=== PATIENT | female | born 1975 | race Caucasian/White ===

== ENCOUNTER → 2024-07-21 12:31 | Outpatient (REF) | payer BC, SELFPAY | LOC: REG 12:31 | PROVIDERS: ATTENDING PHYSICIAN Chiropractor; FAMILY PHYSICIAN Physician Assistant Medical | DX: T78.40XA Allergy, unspecified, initial encounter (principal) | CPT/HCPCS: 36415 ==

== ENCOUNTER 2024-08-13 09:02 | Emergency (ER) | payer BC, SELFPAY ==
[2024-08-13 09:05] VITALS: BP 148/85
[2024-08-13 09:45] LABS: % Basophils 0.2 % (0-2); % Eosinophils 0.1 % (0-6); % Lymphocytes 14.2 % (20.5-51.1); % Monocytes 5.7 % (1.7-9.3); % Neutrophils 78.8 % (42.2-75.2); Absolute Immature Granulocytes 0.2 10^3/uL (0-0.05); Absolute Lymphocytes 2.2 10^3/uL (1.2-3.4); Absolute Monocytes 0.9 10^3/uL (0.1-0.6); Absolute Neutrophils 11.9 10^3/uL (1.4-6.5); Hematocrit 39.9 % (37.0-47.0); Hemoglobin 13.8 g/dL (12.0-16.0); Mean Corp Hgb Conc. 34.6 g/dL (33.0-37.0); Mean Corpuscular Hgb 29.7 pg (27.0-31.0); Mean Corpuscular Volume 85.8 fL (81.0-99.0); Mean Platelet Volume 10.2 fL (7.4-10.4); Nucleated Red Blood Cells % 0 %; Platelet Count 284 10^3/uL (130-400); Red Blood Cell Count 4.65 10^6/uL (4.20-5.40); White Blood Cell Count 15.2 10^3/uL (4.8-10.8)
[2024-08-13 10:02] LABS: HCG, Serum Qualitative Screen Negative
[2024-08-13 10:10] LABS: ALT (SGPT) 24 U/L (0-35); AST (SGOT) 21 U/L (14-36); Albumin 4.9 g/dl (3.5-5.0); Alkaline Phosphatase 57 U/L (38-126); Blood Urea Nitrogen 19 mg/dl (7-17); Calcium 9.7 mg/dl (8.4-10.2); Carbon Dioxide 22 mmol/L (22-30); Chloride 105 mmol/L (98-107); Glucose 107 mg/dl (70-99); Potassium 3.9 mmol/L (3.5-5.1); Sodium 138 mmol/L (135-145); Total Bilirubin 0.7 mg/dl (0.2-1.3); Total Protein 7.5 g/dl (6.3-8.2); eGFR > 60.00
[2024-08-13 10:18] LABS: Troponin I < 0.012 ng/ml
--- NOTE | 2024-08-13 11:26 | ED.GENMED ---
History of Present Illness
General
Chief Complaint: Fainting/Passed Out
Source: patient
Exam Limitations: none
Time Seen by Provider: 08/13/24 10:57
History of Present Illness
History of Present Illness:
49-year-old female stood up too fast and got lightheaded and fell last evening after dinner. She hit her head on the floor and suffered a laceration. There is no preceding chest pain. No palpitations. This happened to her in the past. She has
known orthostatic hypotension. No other complaints at this time
Past History
Past History
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
ED Past Surgical History: Tonsilectomy and Other (History of fasciotomy, breast lifts)
Social History
Tobacco: Non-smoker
Alcohol: Occasional
Personal:
Living: with family
Family History
Family History: Sudden (Uncle at age 40, his son at 31.)
Phy Exam
Physical Exam
Physical Exam:
General: Well-appearing female no acute respiratory distress
HEENT: Normocephalic pupils equal round reactive to light 2 cm horizontally oriented laceration lateral aspect left forehead no muscle involvement
Neurologic exam: Alert and oriented no facial asymmetry conversing appropriately normal gait
Musculoskeletal exam: Cervical spine is nontender
Course
Orders/Labs/Results
Orders:
Orders
08/13/24 09:07
ECG [Electrocardiogram (*1)] Urgent
Reason for Study: Syncope
08/13/24 09:08
EKG- Treatment ONCE
08/13/24 09:18
Test Result ONCE
08/13/24 09:19
Complete Blood Count/With Diff Urgent
Comprehensive Metabolic Panel Urgent
HCG, Serum Qualitative Screen Urgent
Troponin I Urgent
Abnormal Lab Results
08/13/24
09:19
WBC 15.2 H 10^3/uL
(4.8-10.8)
Abs Immat Gran (auto) 0.2 H 10^3/uL
(0-0.05)
Absolute Neuts (auto) 11.9 H 10^3/uL
(1.4-6.5)
Absolute Monos (auto) 0.9 H 10^3/uL
(0.1-0.6)
Immature Gran % 1.0 H %
(0-0.5)
Neutrophils % 78.8 H %
(42.2-75.2)
Lymphocytes % 14.2 L %
(20.5-51.1)
BUN 19 H mg/dl
(7-17)
Glucose 107 H mg/dl
(70-99)
08/13/24 09:19
08/13/24 09:19
Vital Signs
Initial and Last Documented VS:
Initial Vital Signs
Temp Pulse Resp BP Pulse Ox
98.5 F 78 18 148/85 97
08/13/24 09:05 08/13/24 09:05 08/13/24 09:05 08/13/24 09:05 08/13/24 09:05
Last Documented Vital Signs
Temp Pulse Resp BP Pulse Ox
98.5 F 78 18 148/85 97
08/13/24 09:05 08/13/24 09:05 08/13/24 09:05 08/13/24 09:05 08/13/24 09:05
MDM/Problems Addressed
Differential Diagnosis Includes:
Patient fell after having episode of orthostatic hypotension last evening after eating. No preceding symptoms of lightheadedness. There is no chest pain. Workup here shows EKG with sinus rhythm labs reviewed without significant finding.
Regarding her head injury. Considered CT of head but not indicated given lack of pain and normal neurologic exam. The wound was cleansed with saline and closed in a layered fashion after the wound was cleansed with saline and anesthetized with 1%
lidocaine using 5-0 Vicryl repeat a sutures in a simple erupted continuous tissue as well as glue for the skin. Benzoin and Steri-Strips were applied. Wound care instructions were given stable for discharge
*Critical Care Note
Total Time (30-74mins, 75-104mins- exclusive of procedures): Not Applicable
ED Attending Note
-
Portions of this chart may have been created with voice recognition software.� Occasional wrong word or��sound alike� substitutions may have occurred due to the inherent limitations of voice recognition software.
Discharge Plan
Departure
Patient Disposition: Home (Routine Discharge)
Date of Disposition: 08/13/24
Time of Disposition: 11:29
Patient with high blood pressure during this ER visit?: No
Discharge Problem:
Laceration
Prescriptions:
No Action
pindolol 5 MG tablet
5 mg PO SUSA
Referrals:
Mdadie Bowie PA [Family Provider] -
Activity Restrictions/Additional Instructions:
Keep clean. Keep dry for 24 hours. The Steri-Strips will fall off on their own. The glue will dissolve on its own.
Interventions
Interventions:
*Risk Screen - Suicide Last Done: 08/13/24 09:05
*General Assessment Last Done: 08/13/24 09:05
*Neglect/Abuse Screening Last Done: 08/13/24 09:05
Discharge Date and Time
Print Language: BULGARIAN
[2024-08-13 11:53] VITALS: BP 136/71
== END 2024-08-13 11:59 | disposition home or self-care (01) ==
LOC: EMR 09:02
PROVIDERS: EMERGENCY PHYSICIAN Emergency Medicine; FAMILY PHYSICIAN Physician Assistant Medical
DX: S01.81XA Laceration without foreign body of other part of head, initial encounter (principal); W19.XXXA Unspecified fall, initial encounter
CPT/HCPCS: 99284; 12011; 80053; 84484; 84703; 85025; 93005

== ENCOUNTER 2024-11-02 06:21 | Day surgery (SDC) | payer BC, SELFPAY ==
[2024-10-18 11:05] LABS: % Basophils 0.5 % (0-2); % Immature Granulocytes 0.3 % (0-0.5); % Lymphocytes 35.1 % (20.5-51.1); % Monocytes 6.3 % (1.7-9.3); % Neutrophils 56.8 % (42.2-75.2); Absolute Eosinophils 0.1 10^3/uL (0-0.7); Absolute Monocytes 0.4 10^3/uL (0.1-0.6); Absolute Neutrophils 3.3 10^3/uL (1.4-6.5); Hematocrit 40.9 % (37.0-47.0); Hemoglobin 13.7 g/dL (12.0-16.0); Mean Corp Hgb Conc. 33.5 g/dL (33.0-37.0); Mean Corpuscular Hgb 29.6 pg (27.0-31.0); Mean Corpuscular Volume 88.3 fL (81.0-99.0); Mean Platelet Volume 11.3 fL (7.4-10.4); Nucleated Red Blood Cells % 0 %; Platelet Count 230 10^3/uL (130-400); Red Blood Cell Count 4.63 10^6/uL (4.20-5.40); Red Cell Dist. Width 12.4 % (11.5-14.5); White Blood Cell Count 5.8 10^3/uL (4.8-10.8)
[2024-10-18 11:57] LABS: ALT (SGPT) 24 U/L (0-35); AST (SGOT) 23 U/L (14-36); Albumin 4.7 g/dl (3.5-5.0); Alkaline Phosphatase 59 U/L (38-126); Blood Urea Nitrogen 12 mg/dl (7-17); Calcium 10.3 mg/dl (8.4-10.2); Carbon Dioxide 28 mmol/L (22-30); Chloride 107 mmol/L (98-107); Glucose 81 mg/dl (70-99); Potassium 4.4 mmol/L (3.5-5.1); Sodium 141 mmol/L (135-145); Total Bilirubin 0.6 mg/dl (0.2-1.3); Total Protein 6.9 g/dl (6.3-8.2); eGFR > 60.00
[2024-10-19 13:53] VITALS: BMI 21.6
[2024-11-02] VITALS (14 sets, daily range): BP systolic 100–131; BP diastolic 52–68; BMI 21.6; BMI 21.8
[2024-11-02] MEDS: LYRICA 150 MG PO (10:47)
[2024-11-02] MEDS: CELEBREX 200 MG PO (10:47)
[2024-11-02] MEDS: TYLENOL 1000 MG PO ×3 (10:49→23:23)
[2024-11-02] MEDS: METHOCARBAMOL 1500 MG PO ×3 (10:49→23:54)
[2024-11-02] MEDS: NORMOSOL-R/PLASMALYTE-A 1000 IV ×2 (10:50→17:04)
[2024-11-02] MEDS: DILAUDID 0.5 MG IV (15:43)
--- NOTE | 2024-11-02 17:00 | PTCARENOTE ---
pt admitted to 2S room 2116 form the PACU via bed @1645. pt arrived awake and alert. oriented to call payne, bed controls and plan of care with verbalized understanding. assessment completed as documented. tolerating ice water-instructed to order
dinner. family at bedside. care ongoing.
[2024-11-02] MEDS: ULTRAM 50 MG PO ×2 (17:17→21:07)
--- NOTE | 2024-11-02 19:15 | W.DS.TRANS ---
DC Summary - [employer]
-
Discharge Instructions:
Sleep Apnea Risk Low
Discharge Diagnosis/Procedures L5-S1 fusion Dr. Posada 11/02/24
Diet As tolerated
Activity No strenuous activity
Driving Restrictions No driving
Instructions:
Stand-Alone Forms: [facility].
Changes to Home Medications: Yes
Discharge Medications:
DC Medications w/original date entered in [employer]
escitalopram oxalate 10 mg tablet (Lexapro) 10 mg PO DAILY 10/27/24
rizatriptan 10 mg tablet 10 mg PO PRN PRN migraines 10/27/24
Saccharomyces boulardii 250 mg capsule (Florastor) 250 mg PO BID #1 cap 11/02/24
acetaminophen 325 mg tablet (Tylenol) 650 mg (2 x 325 mg) PO QID #1 tab 11/02/24
cephalexin 500 mg capsule 500 mg PO QID infection prevention #20 caps 11/02/24
cyclobenzaprine 5 mg tablet 5 mg PO BID PRN muscle pain/sleep #30 tabs 11/02/24
dexamethasone 4 mg tablet 4 mg PO BID inflammation #6 tabs 11/02/24
docusate sodium 100 mg capsule (Colace) 100 mg PO BID stool softner #1 cap 11/02/24
gabapentin 300 mg capsule 300 mg PO HS sleep/pain #10 caps 11/02/24
magnesium hydroxide 400 mg/5 mL oral suspension (Milk of Magnesia) 30 ml PO HS PRN Constipation #1 mL 11/02/24
ondansetron 4 mg disintegrating tablet 4 mg PO Q6H PRN n/v #20 tabs 11/02/24
oxycodone 5 mg tablet 5 mg PO Q6H PRN 1 tab moderate pain, 2 tabs severe pain #30 tabs 11/02/24
sennosides 8.6 mg tablet (Senokot) 17.2 mg (2 x 8.6 mg) PO BID laxative #2 tabs 11/02/24
Home Medication Changes
cephalexin 500 mg capsule 500 mg PO QID infection prevention #20 caps 11/02/24
cyclobenzaprine 5 mg tablet 5 mg PO BID PRN muscle pain/sleep #30 tabs 11/02/24
dexamethasone 4 mg tablet 4 mg PO BID inflammation #6 tabs 11/02/24
docusate sodium 100 mg capsule (Colace) 100 mg PO BID stool softner #1 cap 11/02/24
gabapentin 300 mg capsule 300 mg PO HS sleep/pain #10 caps 11/02/24
magnesium hydroxide 400 mg/5 mL oral suspension (Milk of Magnesia) 30 ml PO HS PRN Constipation #1 mL 11/02/24
ondansetron 4 mg disintegrating tablet 4 mg PO Q6H PRN n/v #20 tabs 11/02/24
oxycodone 5 mg tablet 5 mg PO Q6H PRN 1 tab moderate pain, 2 tabs severe pain #30 tabs 11/02/24
sennosides 8.6 mg tablet (Senokot) 17.2 mg (2 x 8.6 mg) PO BID laxative #2 tabs 11/02/24
Pending Results: No
[2024-11-02] MEDS: COLACE 100 MG PO (19:59)
[2024-11-02] MEDS: ANCEF 5 IV (19:59)
[2024-11-02] MEDS: SENOKOT 17.2 MG PO (19:59)
[2024-11-02] MEDS: LYRICA 75 MG PO (23:22)
[2024-11-03] VITALS (7 sets, daily range): BP systolic 100–125; BP diastolic 53–77; PULSE 57–66; O2SAT 98
[2024-11-03] MEDS: ULTRAM 50 MG PO ×3 (01:15→08:02)
[2024-11-03] MEDS: ANCEF 5 IV (03:28)
[2024-11-03] MEDS: TYLENOL 1000 MG PO ×3 (03:28→16:39)
--- NOTE | 2024-11-03 03:40 | DOWNTIME ---
There was a [employer] Client Psych Rn Downtime on 11/03/2024 from 0200 to 11/04/2023 at 0318 . Downtime documentation of patient's care, including medication administrations, has been reconciled in the electronic record per guidelines. Refer to the
patient's paper chart under the miscellaneous tab to see printed paper medication records and downtime forms.
[2024-11-03] MEDS: NORMOSOL-R/PLASMALYTE-A 1000 IV (04:16)
--- NOTE | 2024-11-03 07:51 | W.DS.TRANS ---
DC Summary - [employer]
-
Discharge Instructions:
Sleep Apnea Risk Low
Discharge Diagnosis/Procedures L5-S1 fusion Dr. Posada 11/02/24
Diet As tolerated
Activity No strenuous activity
Driving Restrictions No driving
Instructions:
Stand-Alone Forms: [facility] D/C Inst.
Changes to Home Medications: No
Discharge Medications:
DC Medications w/original date entered in [employer]
escitalopram oxalate 10 mg tablet (Lexapro) 10 mg PO DAILY 10/27/24
rizatriptan 10 mg tablet 10 mg PO PRN PRN migraines 10/27/24
Saccharomyces boulardii 250 mg capsule (Florastor) 250 mg PO BID #1 cap 11/02/24
acetaminophen 325 mg tablet (Tylenol) 650 mg (2 x 325 mg) PO QID #1 tab 11/02/24
cephalexin 500 mg capsule 500 mg PO QID infection prevention #20 caps 11/02/24
cyclobenzaprine 5 mg tablet 5 mg PO BID PRN muscle pain/sleep #30 tabs 11/02/24
dexamethasone 4 mg tablet 4 mg PO BID inflammation #6 tabs 11/02/24
docusate sodium 100 mg capsule (Colace) 100 mg PO BID stool softner #1 cap 11/02/24
gabapentin 300 mg capsule 300 mg PO HS sleep/pain #10 caps 11/02/24
magnesium hydroxide 400 mg/5 mL oral suspension (Milk of Magnesia) 30 ml PO HS PRN Constipation #1 mL 11/02/24
ondansetron 4 mg disintegrating tablet 4 mg PO Q6H PRN n/v #20 tabs 11/02/24
oxycodone 5 mg tablet 5 mg PO Q6H PRN 1 tab moderate pain, 2 tabs severe pain #30 tabs 11/02/24
sennosides 8.6 mg tablet (Senokot) 17.2 mg (2 x 8.6 mg) PO BID laxative #2 tabs 11/02/24
Home Medication Changes
Pending Results: No
--- NOTE | 2024-11-03 07:51 | W.PN.SP ---
Today's Communication / Plan
-
s/p lami fusion
Ding well
PT
D/c
Subjective / Objective
Subjective Data
Pt doing well
Legs and back feel good
Denies weakness
Objective Data
Vital Signs
Temp Pulse Resp BP Pulse Ox
97.7 F 57 16 103/53 97
11/03/24 07:12 11/03/24 07:12 11/03/24 07:12 11/03/24 07:12 11/03/24 07:12
Intake and Output
11/02/24 11/03/24 11/04/24
06:59 06:59 06:59
Intake Total 2079
Balance 2079
Intake:
Oral fluids 960 / 960
IV fluids (Total) 1120 / 1120
Normosol 100 / 100
Other:
Number of approximated MODERATE 1
amounts of urine
Physical Exam
-
Movingboth LE
[2024-11-03] MEDS: LEXAPRO 10 MG PO (08:01)
[2024-11-03] MEDS: LYRICA 75 MG PO (08:02)
[2024-11-03] MEDS: COLACE 100 MG PO (08:02)
[2024-11-03] MEDS: METHOCARBAMOL 1500 MG PO (08:02)
[2024-11-03] MEDS: SENOKOT 17.2 MG PO (08:02)
--- NOTE | 2024-11-03 08:14 | CM ---
Addendum entered by Dimple Mcguire RN 11/03/24 14:53:
Plan for DC to home with no further needs.
Addendum entered by Dimple Mcguire RN 11/03/24 08:15:
CM will await PT evaluation.
Original Note:
Cm reviewed medical records. Patient lives independently with . Patient denies history of VN, SNF or DME. Patient is active with her PCP. Patient uses [facility] for medication services.
PLAN: home with no needs.
[2024-11-03 08:19] LABS: Hematocrit 33.2 % (37.0-47.0); Hemoglobin 11.4 g/dL (12.0-16.0)
[2024-11-03 08:21] LABS: Blood Urea Nitrogen 14 mg/dl (7-17); Carbon Dioxide 24 mmol/L (22-30); Chloride 106 mmol/L (98-107); Estimated Creatinine Clearance 87 ml/min; Glucose 111 mg/dl (70-99); Potassium 4.1 mmol/L (3.5-5.1); Sodium 137 mmol/L (135-145); eGFR > 60.00
[2024-11-03] MEDS: ProAmatine 5 MG PO ×2 (09:42→14:37)
[2024-11-03] MEDS: NORMOSOL-R/PLASMALYTE-A 500 IV (11:09)
[2024-11-03] MEDS: METHOCARBAMOL PO (13:23)
[2024-11-03] MEDS: ULTRAM PO (13:23)
--- NOTE | 2024-11-03 13:57 | W.PN.ORTHO ---
Today's Communication / Plan
-
d/c if BP stable
Assessment
.
Distal Motor Intact: Yes
Dressing:
Clean, dry and intact.
Assessment:
[id number] bolus + Midodrine, check orthostatic vitals
Plan
.
Surgery / Date: L5-S1 fusion Dr. Posada 11/02/24
Activity:
Out of bed.
PT/OT
Discharge Plan: Home
Subjective
.
.:
Patient resting comfortably.
Vital Signs and Labs
.
Vital Signs and Labs:
Lab Results
11/03/24 07:11
11/03/24 07:11
Temp Pulse Resp BP Pulse Ox
98.9 F 71 16 114/71 97
11/03/24 11:00 11/03/24 11:00 11/03/24 11:00 11/03/24 11:00 11/03/24 11:00
Physical Exam
-
HEENT: No pallor, cyanosis, or jaundice. Throat clear.
NECK: Supple. No JVD.
RESPIRATORY: Lungs clear to auscultation.
[facility]: S1, S2 normal. RRR.� No murmur, rub or gallop.
ABDOMEN: Soft, non-tender. No distension. BS+/normal.
EXTREMITIES: strength equal, no calf pain with palpation
ASSOCIATE BUYER: AOx3. No focal deficits. hospital administrator grossly intact
[2024-11-03] MEDS: NORMOSOL-R/PLASMALYTE-A IV ×2 (14:37→15:04)
[2024-11-03] MEDS: D5/0.45%NACL 500 IV (14:37)
[2024-11-03] MEDS: DECADRON 4 MG IV (16:03)
== END 2024-11-03 17:05 | disposition home or self-care (01) ==
LOC: SDS 06:21
PROVIDERS: Physician Assistant Medical; ATTENDING PHYSICIAN Orthopaedic Surgery Orthopaedic Surgery of the Spine; FAMILY PHYSICIAN Physician Assistant Medical
DX: M48.062 Spinal stenosis, lumbar region with neurogenic claudication (principal); M43.16 Spondylolisthesis, lumbar region
CPT/HCPCS: 22633; 22840; 36415; 72100; 76000; 80048; 80053; 85014; 85018; 85025; 87070; 97161; 97166; 97530; 97535; C1713; C1776